=== PATIENT | male | born 1985 | race Caucasian/White ===

== ENCOUNTER 2021-05-05 19:38 | Emergency (ER) | payer OTHER ==
[~2021-05-05 19:38] MED LIST: CLINDAMYCIN 15150 MG PO; IBUPROFEN800 MG PO; NORCO 5-325 TA1 EACH PO
== END 2021-05-05 20:21 | disposition home or self-care (01) ==
LOC: FER 19:38
DX: Z53.8 Procedure and treatment not carried out for other reasons (principal)